=== PATIENT | female | born 1980 | race Caucasian/White ===

== ENCOUNTER 2019-10-11 14:59 | Outpatient (RCR) | payer OTHER ==
[2005-06-29 07:32] VITALS: PULSE 73; TEMP 98.3
[~2019-10-11 14:59] MED LIST: CEFTIN500 MG PO; DIFLUCAN150 MG PO; NORCO 325 MG-51 TAB PO; NOVOLIN R100 U/ML SC; NOVOLIN R100 U/ML SQ; ZOVIRAX400 MG PO
== END 2020-01-09 | disposition home or self-care (01) ==
LOC: WSST
DX: A49.01 Methicillin susceptible Staphylococcus aureus infection, unspecified site (principal)